=== PATIENT | male | born 1975 | race Caucasian/White ===

== ENCOUNTER 2023-09-30 12:32 | Emergency (ER) | payer OTHER, SELFPAY ==
[2023-09-30 12:59] VITALS: BP 149/99; PULSE 81; RESP 18; TEMP 35.6; O2SAT 100; BMI 28.5
--- NOTE | 2023-09-30 13:13 | CRLHL7_ITS ---
For Patients: As a result of the Century Cures Act, medical imaging exams and procedure reports are released immediately into your electronic medical record. You may view this report before your referring provider. If you have questions, please contact your health care provider. INDICATION: Left lower quadrant pain and history of stones COMPARISON: None. TECHNIQUE: CT of the abdomen and pelvis before and after the administration of intravenous contrast. Multiplanar axial, coronal, and sagittal reformats were reconstructed. Contrast: 103 mL Isovue 370 intravenously. Oral contrast was not administered. FINDINGS: Lung bases: Normal. Liver: Normal. No masses. Normal vasculature. Gallbladder and biliary tree: Normal gallbladder. No biliary duct dilation. Pancreas: Normal. Spleen: Normal. Normal size. Adrenal glands: Normal. No nodules. Kidneys and bladder: Normal size and position. No cyst or mass. There is a 5 mm calculus in the left distal ureter just shy of the ureterovesicular junction. There is also a 3 mm nonobstructing calculus in the left lower pole. No significant left-sided urinary tract dilatation. Only very minimal pelviectasis. However, there is slightly delayed left-sided renal enhancement compared to the right indicating some degree of collecting system obstruction. There are no right-sided urinary tract calculi or urinary tract dilatation. The urinary bladder is normal. GI: No significant diverticular burn. No dilated segments. No abnormal bowel wall thickening or hyperenhancement. Moderate right-sided stool burden. The appendix is normal. Vessels: Aorta and major branches, including the mesenteric vessels: Patent. Normal caliber. Few atherosclerotic plaques. IVC and tributaries: Normal. Mesenteric and portal veins: Normal. Peritoneum: No free fluid. Lymph nodes: No adenopathy. Pelvis: Physiologic appearance of the reproductive organs. Bones: No fractures. No focal bone lesions. Normal for age. Abdominal wall: Normal. IMPRESSION: 1. There is a 5 mm left distal ureteral calculus with mild upstream obstruction. 2. There is a 3 mm nonobstructing left intrarenal calculus. 3. No right-sided urinary tract calculi. Please note that all CT scans at this facility use dose modulation, iterative reconstruction, and/or weight-based dosing when appropriate to reduce radiation dose to as low as reasonably achievable. Dictated by Laurel Stephenson MD @ 09/30/2023 2:03:25 PM (Electronically Signed)
[2023-09-30] MEDS: KETOROLAC 15 MG/ML inj IVP (13:23)
[2023-09-30] MEDS: MORPHINE 4 MG/ML INJ IVP (13:25)
--- NOTE | 2023-09-30 13:28 | ED_ITS ---
HPI - General Adult General Date Seen: 09/30/23 Chief complaint: Urogenital Problems, Male Stated complaint: kidney stone Time Seen by Provider: 09/30/23 13:04 Source: patient Mode of arrival: ambulatory Limitations: no limitations History of Present Illness HPI narrative: Patient is a 48-year-old male presenting for left lower quadrant abdominal pain. Pain started an hour or 2 prior to arrival. He states he has had kidney stones in the past and this feels like a kidney stone. He says his very sharp pain this left lower quadrant and he is unable to sit still. Does states he has been having issues urinating today and feels like he has a full bladder but has been unable to go. Denies fevers, chills, weakness, numbness, headache, vision changes, diarrhea, constipation. Has not had any dysuria but does states he still is having the sensation like he has to urinate. Has not taking anything yet for pain. No previous abdominal surgeries. Related Data Home Medications Medication Instructions Recorded Confirmed Adderall 09/30/23 atorvastatin 09/30/23 Previous Rx's Medication Instructions Recorded ondansetron 4 mg disintegrating 4 mg PO Q6H #10 tabs 09/30/23 tablet oxycodone 5 mg tablet 5 mg PO Q6H PRN pain #12 tabs 09/30/23 tamsulosin 0.4 mg capsule 0.4 mg PO DAILY #14 caps 09/30/23 Allergies Allergy/AdvReac Type Severity Reaction Status Date / Time shellfish derived Allergy Verified 09/30/23 13:27 Review of Systems Status of ROS: Reports: 10 or more systems reviewed and unremarkable except as noted in History and below Exam Narrative: Exam Narrative: Const: Well-nourished, Well-developed, in moderate distress Eyes: PERRL, no conjunctival injection, and symmetrical lids HENT: Atraumatic external nose and ears. Moist mucous membranes. Neck: Symmetric, trachea midline, No thyromegaly. CVS: RRR, No murmurs or gallops. Peripheral pulses 2+ and equal in all extremities RESP: Unlabored respiratory effort. Clear to auscultation bilaterally. GI: Left lower quadrant tenderness, Nondistended, No rebound or guarding. MSK:Extremities w/o deformity, Normal Active ROM Skin: Warm, Dry. No rashes or lesions. Neuro: Normal Muscle tone, No focal neurological deficits. Psych: Awake, Alert, & Oriented x3. Appropriate mood and affect. Const: Vital Signs, click to edit/add: Vital Signs - 24 hr 09/30/23 12:59 Temperature 96.1 F L Pulse Rate [Pulse Oximeter] 81 Respiratory Rate 18 Blood Pressure [Ri ght Upper Arm] 149/99 H Pulse Oximetry 100 Oxygen Delivery Me thod Room Air Course Vital Signs Vital signs: Initial Vital Signs Temperature 96.1 F L 09/30/23 12:59 Temperature Source Temporal Artery Scan 09/30/23 12:59 Pulse Rate 81 09/30/23 12:59 Respiratory Rate 18 09/30/23 12:59 Blood Pressure 149/99 H 09/30/23 12:59 Blood Pressure Mean 115 H 09/30/23 12:59 Blood Pressure Position Sitting 09/30/23 12:59 Pulse Oximetry 100 09/30/23 12:59 Oxygen Delivery Method Room Air 09/30/23 12:59 Vital Signs Temperature 96.1 F L 09/30/23 12:59 Pulse Rate 81 09/30/23 12:59 Respiratory Rate 18 09/30/23 12:59 Blood Pressure 149/99 H 09/30/23 12:59 Pulse Oximetry 100 09/30/23 12:59 Oxygen Delivery Method Room Air 09/30/23 12:59 Temperature 96.1 F L 09/30/23 12:59 Pulse Rate 81 09/30/23 12:59 Respiratory Rate 18 09/30/23 12:59 Blood Pressure 149/99 H 09/30/23 12:59 Pulse Oximetry 100 09/30/23 12:59 Oxygen Delivery Method Room Air 09/30/23 12:59 Medications Administered Medications: Discontinued Medications Generic Name Dose Route Start Last Admin Trade Name Freq PRN Reason Stop Dose Admin Ketorolac Tromethamine 15 mg 09/30/23 13:11 09/30/23 13:23 Ketorolac 15 Mg/Ml Inj IVP 09/30/23 13:12 15 mg ONCE ONE Administration Medical Decision Making [facility] Narrative Medical decision making narrative: Patient is a 48-year-old male presenting for left lower quadrant tenderness. Symptoms have been going on for hours so now. While the symptoms do seem like they are a another kidney stone, with location is also some concern for diverticulitis or other intra-abdominal issues. Do that we will do a CT scan with and without contrast. He was given Toradol and morphine for pain. I did do an ultrasound of his bladder at bedside and did not see any urine in the bladder at this time. I do not believe he is needing to be straight cathed. Patient was given Toradol and morphine for pain. Pain resolved after he is able to urinate. CBC, CMP shows no concerning abnormalities. Urine shows blood in the urine but otherwise no concerning findings. No signs of UTI. CT shows 5 mm left distal urethral stone with some mild hydronephrosis. This is consistent with his symptoms. He is doing well at this time will be discharged home. States he usually passes the kidney stones on his own. He is agreeable with this plan. Lab Data Labs: Lab Results 09/30/23 09/30/23 Range/Units 13:24 14:00 WBC 10.53 (4.50-11.00) K/uL RBC 4.63 (4.30-5.90) m/uL Hgb 14.6 (13.5-17.5) gm/dL Hct 42.5 (37.0-53.0) % MCV 92 (80-100) fL MCH 32 (26-34) pg MCHC 34 (32-36) gm/dL RDW Coeff of Mari 12.1 (11.5-15.5) % Plt Count 401 (140-440) K/uL Neut % (Auto) 74.0 H (42.0-72.0) % Lymph % (Auto) 18.8 L (20-44) % [place] % (Auto) 6.2 (0.0-11.0) % Eos % (Auto) 0.6 (0.0-7.0) % Baso % (Auto) 0.2 (0.0-3.0) % Neut # (Auto) 7.80 H (1.7-7.0) K/uL Lymph # (Auto) 2.00 (0.90-2.90) K/uL [place] # (Auto) 0.70 (0.00-0.90) K/UL Eos # (Auto) 0.06 (0.00-0.50) K/uL Baso # (Auto) 0.02 (0.00-0.30) K/uL Abs Immat Gran (auto) 0.02 (0.00-0.30) K/uL Imm/Tot Granulo (auto) 0.2 % Sodium 137 (135-149) mmol/L Potassium 4.0 (3.6-5.1) mmol/L Chloride 106 (96-114) mmol/L Carbon Dioxide 21 (20-32) mmol/L Anion Gap 10 (7-15) mEq/L BUN 12 (5-24) mg/dL Creatinine 1.1 (0.5-1.5) mg/dL Estimated Creat Clear 90.14 Estimated GFR 83 ml/min Glucose 151 H (60-115) mg/dL Calcium 9.5 (8.4-10.6) mg/dL Total Bilirubin 0.8 (0.1-1.5) mg/dL AST 33 (12-35) U/L ALT 33 (4-50) U/L Alkaline Phosphatase 83 (40-150) U/L Total Protein 7.9 (6.0-8.3) g/dL Albumin 4.8 (3.3-5.0) g/dL Urine Color Brown A (Yellow) Urine Appearance Slightly Cloudy A (Clear) Urine pH 7.0 (5.0-8.5) Ur Specific Concrete 1.020 (1.000-1.030) Urine Protein 2+ A (Negative) Urine Glucose (UA) Negative (Negative) Urine Ketones 1+ A (Negative) Urine Blood 3+ A (Negative) Urine Nitrite Negative (Negative) Urine Bilirubin Negative (Negative) Urine Urobilinogen 0.2 (0.2-1.0) Ur Leukocyte Esterase Negative (Negative) Urine RBC 50-100 A (0-2) Urine WBC 0-2 (0-5) Ur Squamous Epith Cells Few (None-Few) Urine Bacteria Few A (None) Urine Mucus Few A (None) Imaging Data CT scan abdomen and pelvis: Radiologist's impression: 1. There is a 5 mm left distal ureteral calculus with mild upstream obstruction. 2. There is a 3 mm nonobstructing left intrarenal calculus. 3. No right-sided urinary tract calculi. Please note that all CT scans at this facility use dose modulation, iterative reconstruction, and/or weight-based dosing when appropriate to reduce radiation dose to as low as reasonably achievable. Dictated by Laurel Stephenson MD @ 09/30/2023 2:03:25 PM Discharge Plan Discharge Clinical Impression: Left nephrolithiasis Patient Disposition: Home, Self-Care Condition: Improved Instructions: How to Strain Your Urine (ED) Additional Instructions: Take Tylenol and ibuprofen for pain at home. If that is not helping take the oxycodone. At home strain your urine to look for a kidney stone. If symptoms worsen you can always follow up with Urology or return to the emergency department. Take the tamsulosin. Prescriptions: New ondansetron 4 mg tablet,disintegrating 4 mg PO Q6H Qty: 10 0RF oxycodone 5 mg tablet 5 mg PO Q6H PRN (Reason: pain) Qty: 12 0RF tamsulosin 0.4 mg capsule 0.4 mg PO DAILY Qty: 14 0RF No Action atorvastatin Adderall Follow Up/Referrals: Provider,Not a Local [Primary Care Provider] - Stand Alone Forms: [facility] Info Instructions
[2023-09-30 13:35] LABS: Basophils Absolute Auto 0.02 K/uL (0.00-0.30); Basophils Percent Auto 0.2 % (0.0-3.0); Eosinophils Absolute Auto 0.06 K/uL (0.00-0.50); Eosinophils Percent Auto 0.6 % (0.0-7.0); Hematocrit 42.5 % (37.0-53.0); Hemoglobin* 14.6 gm/dL (13.5-17.5); Immature Granulocytes Abs Auto 0.02 K/uL (0.00-0.30); Immature Granulocytes Pct Auto 0.2 %; Lymphocytes Percent Auto 18.8 % (20-44); Mean Corpuscular HGB Conc 34 gm/dL (32-36); Mean Corpuscular Hemoglobin 32 pg (26-34); Mean Corpuscular Volume 92 fL (80-100); Monocytes Percent Auto 6.2 % (0.0-11.0); Platelet Count* 401 K/uL (140-440); RDW Coefficient of Variation % 12.1 % (11.5-15.5); Red Blood Count 4.63 m/uL (4.30-5.90); White Blood Count* 10.53 K/uL (4.50-11.00)
[2023-09-30 13:47] LABS: Slide Review Reflex No
[2023-09-30 13:48] LABS: Albumin* 4.8 g/dL (3.3-5.0); Chloride* 106 mmol/L (96-114)
[2023-09-30 13:49] LABS: Sodium* 137 mmol/L (135-149)
[2023-09-30 13:51] LABS: Anion Gap 10 mEq/L (7-15); Aspartate Amino Transferase* 33 U/L (12-35); Bilirubin Total* 0.8 mg/dL (0.1-1.5); Carbon Dioxide* 21 mmol/L (20-32); Creatinine* 1.1 mg/dL (0.5-1.5); Est. Creatinine Clearance* 90.14; Estimated Glomerular Filt Rate 83 ml/min; Total Protein* 7.9 g/dL (6.0-8.3)
[2023-09-30 13:52] LABS: Alanine Aminotransferase* 33 U/L (4-50); Alkaline Phosphatase* 83 U/L (40-150); Blood Urea Nitrogen* 12 mg/dL (5-24); Calcium* 9.5 mg/dL (8.4-10.6); Glucose* 151 mg/dL (60-115)
[2023-09-30 14:09] LABS: Appearance Urine Slightly Cloudy (Clear); Bilirubin Urine Negative (Negative); Blood Urine 3+ (Negative); Color Urine Brown (Yellow); Glucose Urine Negative (Negative); Ketones Urine 1+ (Negative); Leukocyte Esterase Urine Negative (Negative); Nitrite Urine Negative (Negative); Protein Urine 2+ (Negative); Urobilinogen Urine 0.2 (0.2-1.0)
[2023-09-30 14:26] LABS: Bacteria Urine Few; Mucus Urine Few; RBC Urine 50-100 (0-2); Squamous Epithelial Cell Urine Few (None-Few); WBC Urine 0-2 (0-5)
[2023-09-30 14:30] VITALS: PULSE 87; O2SAT 94
== END 2023-09-30 14:53 | disposition home or self-care (01) ==
PROVIDERS: Emergency Provider Student in an Organized Health Care Education/Training Program
DX: N20.0 Calculus of kidney (principal)
CPT/HCPCS: 36415; 74178; 80053; 81001; 85025; 87086; 96374; 96375; 99283; 99284; 99285; J1885; J2270; Q9967